=== PATIENT | male | born 1960 | race Caucasian/White ===

== ENCOUNTER 2023-09-13 06:28 | Day surgery (SDC) | payer MEDICAID, OTHER ==
[2023-09-13] MEDS: Sodium Chloride 0.9% 10 ML Syringe FLUSH ONE (06:50)
== END 2023-09-13 08:15 | disposition home or self-care (01) ==
LOC: JP.SDS 06:28
PROVIDERS: ATTEND Ophthalmology
DX: H26.9 Unspecified cataract (principal); F41.9 Anxiety disorder, unspecified; E66.9 Obesity, unspecified
CPT/HCPCS: 66984; J3490; V2632

== ENCOUNTER 2023-09-27 06:26 | Day surgery (SDC) | payer MEDICAID, MEDICARE, OTHER ==
[2023-09-27] MEDS: Sodium Chloride 0.9% 10 ML Syringe FLUSH PRN (07:07)
== END 2023-09-27 08:35 | disposition home or self-care (01) ==
LOC: JP.SDS 06:26
PROVIDERS: ATTEND Ophthalmology
DX: H25.12 Age-related nuclear cataract, left eye (principal)
CPT/HCPCS: 66984; J3490; V2632